=== PATIENT | male | born 1950 | race Caucasian/White ===

== ENCOUNTER 2019-06-14 06:36 | Day surgery (SDC) | payer MEDICARE, OTHER ==
[~2019-06-14] VITALS: Ht 170.2 cm; Wt 57.7 kg
[~2019-06-14 06:36] MED LIST: SODIUM CHLORIDE 0.9% 1,000 ML IV ONE
[2019-06-14] MEDS ORDERED: BENZOCAINE 20% 50 MCG/SPRAY 57 GM TP ONE (06:37)
[2019-06-14] MEDS ORDERED: LIDOCAINE 4% 50 ML SOLUTION TP ONE (06:37)
[2019-06-14] MEDS ORDERED: ALBUTEROL SULFATE 2.5 MG/0.5 ML NEB SOLUTION NEB ONE ×2 (06:37→07:15)
[2019-06-14] MEDS ORDERED: LIDOCAINE 2% 30 ML JELLY TP ONE (06:37)
[2019-06-14] MEDS ORDERED: SODIUM CHLORIDE 0.9% 1,000 ML IV ONE (07:00)
[2019-06-14] MEDS ORDERED: MUPI1OIN5 TP (07:01)
[2019-06-14] MEDS ORDERED: MORP15TA43 PO (07:01)
[2019-06-14] MEDS ORDERED: PRED5 PO (07:01)
[2019-06-14] MEDS ORDERED: TIOT185 IH (07:01)
[2019-06-14] MEDS ORDERED: ASPI81 PO (07:01)
[2019-06-14] MEDS ORDERED: LISI-662 PO (07:01)
[2019-06-14] MEDS ORDERED: BUDE10.2 IH (07:01)
[2019-06-14] MEDS ORDERED: HYDR30CR3 TP (07:01)
[2019-06-14] MEDS ORDERED: METHI10 PO (07:01)
[2019-06-14] MEDS ORDERED: AMLO10TA7 PO (07:01)
[2019-06-14] MEDS ORDERED: ALBU8HFA PO (07:01)
[2019-06-14] MEDS ORDERED: IPRATROPIUM BROMIDE 0.5 MG/2.5 ML NEB SOLUTION NEB ONE (07:18)
[2019-06-14 07:41] LABS: BASOPHILS % (AUTO) 0.4 % (0.0-2.0); EOSINOPHILS % (AUTO) 2.4 % (1.0-6.0); HEMATOCRIT 43.1 % (41-53); HEMOGLOBIN 13.9 g/dL (13.5-17.5); LYMPHOCYTES % (AUTO) 11.1 % (22.0-44.0); MEAN CORPUSCULAR HEMOGLOBIN 30.5 pg (26.0-34.0); MEAN CORPUSCULAR HGB CONC 32.3 G/dL (31.0-37.0); MEAN CORPUSCULAR VOLUME 95 fL (80-100); MONOCYTES # (AUTO) 0.6 K/uL (0.1-1.0); MONOCYTES % (AUTO) 6.4 % (2.0-9.0); NEUTROPHILS # (AUTO) 6.9 K/uL (1.8-7.7); NEUTROPHILS % (AUTO) 79.7 % (40.0-70.0); PLATELET COUNT (AUTO) 231 K/uL (150-450); RED BLOOD CELL COUNT(AUTO) 4.56 MIL/uL (4.50-5.90); RED CELL DISTRIBUTION WIDTH 16.5 % (11.5-14.5)
[2019-06-14] MEDS ORDERED: FentaNYL CITRATE-PF 100 MCG/2 ML VIAL ONE (07:45)
[2019-06-14] MEDS ORDERED: MIDAZOLAM HCL 2 MG/2 ML VIAL ONE (07:45)
[2019-06-14 07:49] LABS: ANION GAP 5 mmol/L (8-16); CALCIUM, TOTAL 9.5 mg/dL (8.8-10.5); CARBON DIOXIDE 32 mmol/L (22-29); CHLORIDE 103 mmol/L (98-107); CREATININE 0.87 mg/dL (0.60-1.30); GLOMERULAR FILTR. RATE CALC > 60 mL/min (>60); GLUCOSE,RANDOM 98 mg/dL (70-110); POTASSIUM 4.1 mmol/L (3.5-5.1); SODIUM SERUM 140 mmol/L (136-145); UREA NITROGEN, BLOOD 13 mg/dL (7-18)
[2019-06-14 07:53] LABS: PROTHROMBIN TIME 10.2 SEC (9.4-11.6)
[2019-06-14] MEDS ORDERED: MethylPREDNISolone SOD SUCC 125 MG/2 ML VIAL IVP ONE (08:45)
[2019-06-14] MEDS ORDERED: OXYGEN THERAPY IH SCH (20:00)
[2019-06-16 23:06] LABS: QUANTIFERON+, Nil Value 0.03 IU/mL; QUANTIFERON+,Mitogen Value 3.44 IU/mL; QUANTIFERON+,TB1 Antigen Value 0.04 IU/mL; QUANTIFERON+,TB2 Antigen Value 0.04 IU/mL; QUANTIFERON, TB GOLD PLUS Negative (Negative)
== END 2019-06-14 10:55 | disposition home or self-care (01) ==
LOC: SURGERY 06:36
PROVIDERS: ATTEND Internal Medicine Critical Care Medicine
DX: J38.4 Edema of larynx (principal); B37.0 Candidal stomatitis; I10 Essential (primary) hypertension; J44.9 Chronic obstructive pulmonary disease, unspecified; M19.90 Unspecified osteoarthritis, unspecified site; Z98.890 Other specified postprocedural states; Z79.899 Other long term (current) drug therapy
CPT/HCPCS: 31623; 31624; 36415; 71045; 80048; 85025; 85610; 85730; 86403; 86480; 86606 ×2; 86635; 86698; 87015; 87070; 87101; 87205; 87206; 87220; 88312; 93005; 94640; J2250; J2930; J3010; J7030